=== PATIENT | male | born 1985 | race Caucasian/White ===

== ENCOUNTER 2025-02-25 12:17 | Emergency (ER) | payer BC ==
[~2025-02-25] VITALS: Wt 102.1 kg
[2025-02-25] MEDS ORDERED: SODIUM CHLORIDE 0.9% 1,000 ML IV ONE (13:20)
[2025-02-25] MEDS ORDERED: Ondansetron Hydrochloride 4 MG/2 ML VIAL IV ONE (13:20)
[2025-02-25 13:49] LABS: MEAN CELL VOLUME 91.4 fl (80.0-94.0); MEAN CORPUSCULAR HGB 30.9 pg (27.0-31.0); MEAN PLATELET VOLUME 11.3 fl (9.6-12.3); NUCLEATED RED BLOOD CELL 0.0 % (0.0-0.0); NUCLEATED RED BLOOD CELL 0.0 10*3/uL (0.0-0.0); PLATELET COUNT AUTOMATED 128 10*3/uL (130-400); RED CELL DISTRI WIDTH 11.9 % (0-14.5)
[2025-02-25 14:11] LABS: MANUAL DIFF REFLEX YES
[2025-02-25 14:12] LABS: BUN 15 mg/dl (9-23); SGPT/ALT 40 U/L (5-49)
[2025-02-25 14:17] LABS: PLATELET SUFFICIENCY LOW (NORMAL)
[2025-02-25 15:40] LABS: BILIRUBIN Negative (Negative); BLOOD Negative (Negative); CLARITY Clear (Clear); COLOR Yellow (Yellow); KETONE Trace (Negative); LEUKO ESTERASE Negative (Negative); NITRITE Negative (Negative); PH 6.0 (4.5-8.0); SPECIFIC GRAVITY >= 1.030 (1.001-1.030); UROBILINOGEN 1.0 E.U./dl (0.0-1.0)
[2025-02-25 15:48] LABS: BACTERIA 1+
[2025-02-25 15:49] LABS: CALCIUM OXALATE CRYSTALS Trace; MUCOUS 1+
[2025-02-25] MEDS ORDERED: Ondansetron4 MG PO (18:18)
[2025-02-25] MEDS ORDERED: DRAMAMINE25 M4 PO (18:18)
== END 2025-02-25 18:13 | disposition home or self-care (01) ==
LOC: ED 12:17
PROVIDERS: Nurse Practitioner Family
DX: R42 Dizziness and giddiness (principal); R11.2 Nausea with vomiting, unspecified; R19.7 Diarrhea, unspecified; E11.9 Type 2 diabetes mellitus without complications